=== PATIENT | male | born 1955 | race Caucasian/White ===

== ENCOUNTER 2016-12-13 15:09 | Observation (INO) ==
--- NOTE | 2016-12-13 15:22 | Emergency Department Note ---
Disposition Clinical Impression: Chest pain Qualifiers: Chest pain type: unspecified Qualified Code(s): R07.9 - Chest pain, unspecified Disposition: Admitted As Inpatient Condition: Good Time of Disposition: 17:39 Chest Pain HPI - General Chief Complaint: ED Chest Pain Stated Complaint: Chest Pain Time Seen by Provider: 12/13/16 15:15 Source: EMS Mode of arrival: EMS Limitations: no limitations Vital Signs Reviewed: Yes Nursing Notes Reviewed: Yes - History of Present Illness HPI Narrative: 61-year-old male presents to the ED complaining of chest pain that began approximately 45 minutes ago. 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 He states that all of a sudden he had left- sided chest pain as radiating up into his left jaw. He states it was a 4 out of 10 pressure-like pain on his chest. He states he has never had this pain before. At this time he went into the nurse's station to get evaluated they said he was very pale and diaphoretic. At this time they gave him 4 baby aspirin. Upon takingthat he immediately had the chest pain go away. He states that he does not feel like he was short of breath but he was breathing hard according to the nurse when he arrived. 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 He states that his grandfather did have a heart attack at age 50 but did have heart issues before and after that. He does have a history of colon cancer but is in remission for 10 years. He states he has been on no long car rides, and shortness of breath, pain in his legs, take hormones, recent surgeries. All DVT risk factors were negative. He is currently not having pain when he presented to the ED. He is having no shortness of breath, headache, blurry vision, fevers, abdominal pain, constipation/diarrhea, pain or tingling going down the arms or legs, numbness. Severity scale (1-10): 0 - Related Data Home Medications Medication Instructions Recorded Confirmed Citalopram [CeleXA] 20 mg PO DAILY 09/02/16 09/02/16 Cyanocobalamin (B-12) [Vitamin B12] 1,000 mcg IM QMONTH 09/02/16 09/02/16 Lisinopril [Zestril] 10 mg PO DAILY 09/02/16 09/02/16 Omeprazole [PriLOSEC] 20 mg PO DAILY 09/02/16 09/02/16 Tamsulosin [Flomax] 0.4 mg PO DAILY 09/02/16 09/02/16 Allergies Allergy/AdvReac Type Severity Reaction Status Date / Time No Known Allergies Allergy Verified 09/02/16 09:38 Review of Systems: 10 point review of systems unable associated history of present illness. All systems ED: reviewed and negative except as stated. Review of Systems: As Per HPI Constitutional: Denies: fever, chills Cardiovascular: Denies: chest pain, palpitations Respiratory: Denies: cough, dyspnea, wheezes Gastrointestinal: Denies: abdominal pain, nausea, vomiting Chest Pain PMH - Past Medical History Medical history: Reports: cancer, hypertension Surgical history: Reports: colectomy Psychiatric history: Reports: no psych history - Social History Smoking Status: Unknown if ever smoked Alcohol use: Reports: occasionally Drug use: Reports: none Physical Exam - General Limitations: no limitations General appearance: alert, in no apparent distress - Head Head exam: atraumatic, normocephalic, normal inspection - Eye Eye exam: Present: normal appearance, PERRL, EOMI - ENT ENT exam: normal exam, normal oropharynx, mucous membranes moist - Neck Neck exam: Present: normal inspection, full ROM, trachea midline - Chest Chest inspection: Present: normal inspection, symmetric chest wall rise - Respiratory Respiratory exam: Present: normal lung sounds bilaterally - Cardiovascular Cardiovascular exam: Present: regular rate, normal rhythm, normal heart sounds - Abdominal Exam Abdominal exam: Present: soft, Non-Tender. Absent: tenderness, distention, guarding, rebound, rigidity - Expanded Lower Extremity Exam Neurovascular/Tendon exam: Absent: pulse deficit, motor deficit, sensory deficit , tendon deficit - Back Exam Back exam: Present: normal inspection, full ROM. Absent: tenderness, CVA tenderness (R), CVA tenderness (L) - Neurological Exam Neurological exam: Present: alert, oriented X3 - Skin Skin exam: Present: warm, dry, intact, normal color Course Course Narrative: 61-year-old male presents the ED with chest pain. We will get a EKG, chest x- ray, troponin, CMP, CBC. He has no DVT risk factors he was not tachycardic or hypoxic so we will not get a d-dimer. Patient was given aspirin per to arrival and he is not having chest pains will forego giving aspirin or nitroglycerin at this time. Patient okay with this plan. Disposition is most likely admission for chest pain rule out as he has never had a chest pain workup. Vital Signs Temperature 98.1 F 12/13/16 15:10 Pulse Rate 74 12/13/16 15:10 Respiratory Rate 18 12/13/16 15:10 Blood Pressure 149/95 12/13/16 15:10 O2 Sat by Pulse Oximetry 96 12/13/16 15:10 Temperature 98.1 F 12/13/16 15:10 Pulse Rate 74 12/13/16 15:10 Respiratory Rate 18 12/13/16 17:24 Blood Pressure 153/95 12/13/16 17:24 O2 Sat by Pulse Oximetry 96 12/13/16 15:10 Oxygen Delivery Oxygen Delivery Room Air Chest Pain - MDM Narrative Medical decision making narrative: 61-year-old male presents to the ED for chest pain. He was at work when he said the chest pain started in his left chest and radiated up into his left cheek. He has never had this feeling before. He went to the nurse's station exam is diaphoretic and pale in color. Due to this symptoms we decided to do a chest pain workup. He was given 4 baby aspirin prior to arrival and states that the chest pain did go away. He denies having chest pain and tremors per we did not give him nitroglycerin. EKG and chest x-ray were normal. All his labs are normal including his troponin. Due to him having no cardiac workup in the past and his symptoms that he presented with refill of his best friend be admitted for chest pain workup and further cardiac evaluation including stress test and echocardiogram. Patient is okay with this plan. Spoke with the hospitalist who agreed to accept the patient. Patient is admitted in stable condition at this time. Chest X-Ray 12/13/16 15:15 IMPRESSION: Normal. D/ / To Smith MD / To Smith MD Interpreting Provider: To Smith MD - Medical Records Medical records reviewed: Yes I reviewed the patient's medical records. - Lab Data Lab results reviewed: Yes I reviewed the patient's lab results. Result diagrams: 12/13/16 15:26 12/13/16 15:26 Lab Results 12/13/16 12/13/16 12/13/16 Range/Units 15:26 15:26 15:26 WBC 6.6 (4.3-11.1) K/mcL RBC 4.98 (4.19-5.50) M/mcL Hgb 14.7 (12.9-16.9) g/dL Hct 43.1 (37.5-50.1) % MCV 86.5 (83.0-100.0) fL MCH 29.5 (28.0-33.3) pg MCHC 34.1 (31.6-35.5) g/dL RDW 12.2 (11.5-14.5) % Plt Count 262 (140-400) K/mcL MPV 9.5 (9.4-12.4) fL Immature Gran % 0.2 (0-4) % Seg Neutrophils % 62.6 % Lymphocytes % 22.8 % Monocytes % 11.8 % Eosinophils % 2.0 % Basophils % 0.6 % Neutrophils # 4.2 (1.6-8.9) K/mcL Lymphocytes # 1.5 (0.6-4.6) K/mcL Monocytes # 0.8 (0.0-1.3) K/mcL Eosinophils # 0.1 (0.0-0.6) K/mcL Basophils # 0.0 (0.0-0.2) K/mcL PT 10.8 (9.4-12.1) Seconds INR 1.0 APTT 27.6 (26.0-36.0) Seconds Sodium 140 (136-145) mEq/L Potassium 4.3 (3.5-4.5) mEq/L Chloride 106 (98-109) mEq/L Carbon Dioxide 27 (19-29) mEq/L BUN 12 (8-26) mg/dL Creatinine 0.87 (0.72-1.25) mg/dL Est GFR ( Amer) > 60 (> 60) Est GFR (Non-Af Amer) > 60 (> 60) BUN/Creatinine Ratio 14 (6-26) Glucose 81 (70-99) mg/dL Calculated Osmolality 289 (280-300) Calcium 9.1 (8.6-10.8) mg/dL Troponin I (0-0.03) ng/mL 12/13/16 Range/Units 15:26 WBC (4.3-11.1) K/mcL RBC (4.19-5.50) M/mcL Hgb (12.9-16.9) g/dL Hct (37.5-50.1) % MCV (83.0-100.0) fL MCH (28.0-33.3) pg MCHC (31.6-35.5) g/dL RDW (11.5-14.5) % Plt Count (140-400) K/mcL MPV (9.4-12.4) fL Immature Gran % (0-4) % Seg Neutrophils % % Lymphocytes % % Monocytes % % Eosinophils % % Basophils % % Neutrophils # (1.6-8.9) K/mcL Lymphocytes # (0.6-4.6) K/mcL Monocytes # (0.0-1.3) K/mcL Eosinophils # (0.0-0.6) K/mcL Basophils # (0.0-0.2) K/mcL PT (9.4-12.1) Seconds INR APTT (26.0-36.0) Seconds Sodium (136-145) mEq/L Potassium (3.5-4.5) mEq/L Chloride (98-109) mEq/L Carbon Dioxide (19-29) mEq/L BUN (8-26) mg/dL Creatinine (0.72-1.25) mg/dL Est GFR ( Amer) (> 60) Est GFR (Non-Af Amer) (> 60) BUN/Creatinine Ratio (6-26) Glucose (70-99) mg/dL Calculated Osmolality (280-300) Calcium (8.6-10.8) mg/dL Troponin I 0.00 (0-0.03) ng/mL - Radiology Data Radiology results reviewed: Yes I reviewed the patient's radiology results. - EKG Data EKG attestation: Yes I reviewed and interpreted this EKG. EKG results narrative: EKG done at 1516 reviewed by myself and the attending shows normal sinus rhythm at a rate is 67, [place] interval 148, QRS 84, QTC 400 with a normal axis. There is no acute ST changes, T-wave changes. No signs of any heart blocks. No signs of hypertrophy. No signs of WW/Brugada syndrome. There is no old EKG that was done 08/02/16 which also showed no acute changes but was sinus bradycardia. My overall impression is that this is a normal EKG with no acute changes. EKG shows normal: sinus rhythm, axis, intervals, QRS complexes, ST-T waves Rate: normal Rhythm: NSR [place]/QRS: normal When compared to previous EKG there are: no significant changes Interpretation: no acute changes, normal EKG, unchanged when compared to prior tracing (date) Heart Score - Score History: Moderately Suspicious EKG: Normal Age: 45-65 Risk Factors: 1-2 risk factors Troponin: Less than normal limit HEART Score Total: 3 Attestation Statement - Attestation Attestation: I, George Moreira, examined this patient and my medical decision-making was reviewed with the TRESTLE MAINTERNANCE LABORER/PA/Advanced Practice Nurse/Resident Physician. I agree with the documented findings, disposition and treatment plan as described except to the extent set forth below. 61-year-old male presents emergency department with acute onset chest pain. Patient states he was at work when he suddenly had acute onset of an ache in the left side of his chest that radiated to his jaw is associated with diaphoresis and lightheadedness. Patient states he became near syncopal but did not syncopized. Ever happened to him in the past. No changes in his medications. Patient denies significant EtOH use or history of IV drug use. Pain resolved after receiving aspirin by EMS. He denies fever, chills, nausea, vomiting, diarrhea, abdominal pain. Patient cannot recall the last time he had an evaluation of his heart. Initial troponin negative. EKG did not show evidence of STEMI. Patient will be admitted to the hospital for further care and evaluation of his acute onset chest pain.
[2016-12-13 15:34] LABS: Basophils % 0.6 %; Eosinophils # 0.1 K/mcL (0.0-0.6); Hematocrit 43.1 % (37.5-50.1); Hemoglobin 14.7 g/dL (12.9-16.9); Immature Granulocytes % 0.2 % (0-4); Lymphocytes # 1.5 K/mcL (0.6-4.6); Lymphocytes % 22.8 %; Mean Corpuscular HGB Conc 34.1 g/dL (31.6-35.5); Mean Corpuscular Hemoglobin 29.5 pg (28.0-33.3); Mean Corpuscular Volume 86.5 fL (83.0-100.0); Mean Platelet Volume 9.5 fL (9.4-12.4); Monocytes # 0.8 K/mcL (0.0-1.3); Monocytes % 11.8 %; Neutrophils # 4.2 K/mcL (1.6-8.9); Platelet Count 262 K/mcL (140-400); Red Blood Count 4.98 M/mcL (4.19-5.50); Red Cell Distribution Width 12.2 % (11.5-14.5); Segmented Neutrophils % 62.6 %
[2016-12-13 15:47] LABS: Prothrombin Time 10.8 Seconds (9.4-12.1)
[2016-12-13 15:50] LABS: Activated Partial Thrombo Time 27.6 Seconds (26.0-36.0)
[2016-12-13 15:51] LABS: BUN/Creatinine Ratio 14 (6-26); Blood Urea Nitrogen 12 mg/dL (8-26); Calcium 9.1 mg/dL (8.6-10.8); Carbon Dioxide 27 mEq/L (19-29); Chloride 106 mEq/L (98-109); Glucose 81 mg/dL (70-99); Osmolality,Calculated 289 (280-300); Potassium 4.3 mEq/L (3.5-4.5); Sodium 140 mEq/L (136-145); eGFR For African Americans > 60 (> 60); eGFR For Non-African Americans > 60 (> 60)
[2016-12-13] MEDS ORDERED: Acetaminophen 325 MG TABLET PO PRN (18:09)
[2016-12-13] MEDS ORDERED: Naloxone 0.4 MG/ML INJ IVP PRN (18:09)
[2016-12-13] MEDS ORDERED: *HR* Morphine 2 MG/ML SYRINGE IVP PRN (18:09)
[2016-12-13] MEDS ORDERED: Ondansetron 4 MG/2 ML VIAL IVP PRN (18:09)
[2016-12-13] MEDS ORDERED: *HR* HYDROcodone/Acet 5/325 mg TABLET PO PRN (18:09)
--- NOTE | 2016-12-13 18:24 | Internal Med History&Physical ---
<AshleyliliyapaulySaqib bronson - Last Filed: 12/13/16 19:09> Date of Encounter: 12/13/16 Time of Encounter: 17:00 Assessment and Plan (1) Chest pain Current visit: Yes Status: Acute Acute chest pain that began this afternoon with duration >1 hour. Pt. describes pain as pressure that radiates to left neck. Diaphoresis, SOOB and lightheadedness are associated sx. Denies any previous cardiac hx, previous echocardiogram, or previous stress test. EKG today shows sinus rhythm and normal ECG. Initial troponin 0.00. Will trend x2. Continuous cardiac telemetry. NPO at midnight for nuclear pharm stress test in the a.m. D-dimer ordered stat. O2 PRN. Nitroglycerin SL PRN. Will consider cardiology consult based on echo and stress test results. Pt. at high risk for cardiac event based on current sx , risk factor of HTN, and hx of grandfather [place] @ 50 years old. Observation. Qualifiers: Chest pain type: other chest pain Qualified Code(s): R07.89 - Other chest pain; R07.8 - Other chest pain (2) Lightheadedness Current visit: Yes Status: Acute Acute lightheadedness associated with chest pain sx. Transient. Falls/safety precautions. (3) HTN (hypertension) Current visit: Yes Status: Chronic Hx of chronic HTN. Monitor pt. and VS. Continue lisinopril. Hydralazine 10 mg Q6 PRN for systolic BP >160. Qualifiers: Hypertension type: essential hypertension Qualified Code(s): I10 - Essential (primary) hypertension (4) DVT prophylaxis Current visit: Yes Status: Acute Heparin 5,000 units SQ Q8 for DVT prophylaxis. Internal Medicine - H&P: HPI Chief complaint: Chest pain Admitted From: Emergency Dept Plans for Post Hospital Care: Home History of present illness: Mr. Culp is a 61 year old male with medical history of colon cancer diagnosis 11 years ago (resolved), hypertension, GERD, and enlarged prostate reports from the ED with chief complaint of chest pain that began this afternoon while he was at work. 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 Duration was greater than 1 hour. Patient reports he was lightheaded, short of breath, and diaphoretic. Also reports urinary urgency/frequency d/t enlarged prostate. He was given 324 mg of aspirin at work which he states helped the pain go away. Denies any previous history of cardiac issues and states he has never seen a radiologist, had an echocardiogram or stress test. Denies recent illness, fever, chills, nausea, vomiting, changes in vision, unusual bleeding, headache, numbness, tingling, abdominal pain, diarrhea, constipation, presyncope, or syncope. Past Med Surg Social Fam HX - Past Medical History Source: patient, old records reviewed Medical history: cancer (Colon cancer dx 11 years ago. Had 18" of colon removed. ), hypertension Psychiatric history: no psych history - Past Surgical History Surgical History: colectomy - Social History Smoking Status: Never smoker Smokeless Tobacco Status: No Alcohol use: occasionally Drug use: none Occupational status: employed Current living situation: Home Activity Level: Independent ambulation, Very active Recent Out of Country Travel Within the Last 8 Weeks: No Exposure or Possible Exposure to Illness During Travel: No - Family History Father Race: Family Member Ethnicity: Non- Living Status: Age at : 80 Cause of : Lung cancer w/mets to brain Hx Family Cancer: Yes (Lung/Brain) Mother Race: Family Member Ethnicity: Non- Living Status: Still Living Hx Family Cardiac Disorders: Yes ([place]) Brother Race: Family Member Ethnicity: Non- Living Status: Still Living Hx Family Endocrine Disorder: Yes (DM) Grandmother Race: Family Member Ethnicity: Non- Living Status: Cause of : CAD Hx Family Cardiac Disorders: Yes (CAD) Hx Family Endocrine Disorder: Yes (DM) Grandfather Race: Family Member Ethnicity: Non- Living Status: Cause of : [place] Hx Family Cardiac Disorders: Yes (CAD) Internal Medicine - H&P: Meds Citalopram [CeleXA] 20 mg PO DAILY 09/02/16 [History] Cyanocobalamin (B-12) [Vitamin B12] 1,000 mcg IM QMONTH 09/02/16 [History] Omeprazole [PriLOSEC] 20 mg PO DAILY 09/02/16 [History] RX: Lisinopril [Zestril] 10 mg PO DAILY 09/02/16 [History] Tamsulosin [Flomax] 0.4 mg PO DAILY 09/02/16 [History] 3 Allergy/AdvReac Type Severity Reaction Status Date / Time No Known Allergies Allergy Verified 09/02/16 09:38 All Systems PM: A 10-system review of systems was performed and is negative for pertinent findings except as documented above in the HPI. - Constitutional Constitutional: no chills, no fever(s), no night sweats - EENT Eyes: no change in vision, no discharge, no pain, no photophobia Ears: no ear discharge, no ear pain, no tinnitus Nose, mouth and throat: no dysphagia, no nasal discharge, no neck pain, no sore throat - Breasts Breasts: as per HPI - Cardiovascular Cardiovascular ROS IM: as per HPI, chest pain, diaphoresis, dyspnea, dyspnea on exertion, lightheadedness - Respiratory Respiratory: as per HPI, dyspnea, dyspnea on exertion - Gastrointestinal Gastrointestinal: no abdominal pain, no diarrhea, no hematemesis, no hematochezia, no melena, no nausea, no vomiting - Genitourinary Genitourinary ROS male: as per HPI, urinary frequency - Musculoskeletal Musculoskeletal ROS IM: no numbness, no tingling - Integumentary Integumentary IM: no rash, no unusual bruising - Neurological Neurological ROS: no confusion, no convulsions, no focal weakness, no numbness, no tingling, no tremor(s) - Psychiatric Psychiatric: as per HPI - Endocrine Endocrine IM: as per HPI - Hematologic/Lymphatic Hematologic/Lymphatic: no easy bruising - Allergic/Immunologic Allergic/Immunologic: as per HPI - Constitutional Vitals: Temp Pulse Resp BP Pulse Ox 98.1 F 74 18 153/95 96 12/13/16 15:10 12/13/16 15:10 12/13/16 17:24 12/13/16 17:24 12/13/16 15:10 General appearance: Present: cooperative, A&O X 3, pleasant, no acute distress, answers questions appropriately - Head Head exam: Present: atraumatic, normocephalic - Eye Eye exam: Present: PERRL, conjuntiva pink, sclera anicteric Pupils: Present: PERRL - ENT ENT exam: Present: normal exam, normal external ear exam, normal oropharynx - Neck Neck exam general surgery: Present: normal inspection, supple, trachea midline. Absent: lymphadenopathy - Respiratory Respiratory exam: Present: CTAB. Absent: accessory muscle use, rales, rhonchi, wheezes - Cardiovascular Cardiovascular exam: Present: RRR, +S1, +S2. Absent: diastolic murmur, gallop, rubs, systolic murmur - GI/Abdominal GI/Abdominal exam: Present: normal bowel sounds, soft, no peritoneal signs. Absent: distended, tenderness - Rectal Rectal exam: Present: deferred - Additional comments: exam deferred. - Extremities Exam Extremities exam: Present: warm, radial pulses palpable and symmetrical. Absent : calf tenderness, cyanotic, pedal edema - Back Exam Back exam: Present: normal inspection - Neurological Exam Neurological exam: Present: CN II-XII intact, oriented X3, no focal deficits. Absent: pronater drift, facial droop, speech deficit - Psychiatric Psychiatric exam: Present: normal affect, normal mood - Skin Skin exam: Present: dry, intact Internal Med - H&P Results - Labs CBC & Chem 7: 12/13/16 15:26 12/13/16 15:26 - EKG Data EKG shows normal: sinus rhythm Rate: normal - EKG Data Prior EKG available for review: yes When compared to previous EKG: there is no significant change Interpretation IM: normal EKG EKG comments: 12/13/16 18:34 EKG dated 08/02/16 shows sinus bradycardia. EKG dated 12/13/16 shows sinus rhythm and normal ECG. - Diagnostic Studies Chest x-ray Additional comments: Impressions Chest X-Ray 12/13/16 15:15 IMPRESSION: Normal. D/ / To Smith MD / To Smith MD Interpreting Provider: To Smith MD <Seb Guzman - Last Filed: 12/13/16 22:28> Date of Encounter: 12/13/16 Internal Medicine - H&P: HPI History of present illness: Mr. Culp is a 61 year old male All Systems PM: A 10-system review of systems was performed and is negative for pertinent findings except as documented above in the HPI. - Constitutional Vitals: Temp Pulse Resp BP Pulse Ox 97.6 F 55 17 173/89 94 12/13/16 19:06 12/13/16 19:06 12/13/16 19:06 12/13/16 19:06 12/13/16 19:06 Internal Med - H&P Results - Labs CBC & Chem 7: 12/13/16 15:26 12/13/16 15:26 Labs: Cardiac Enzymes 12/13/16 Range/Units 20:47 Troponin I 0.00 (0-0.03) ng/mL - Attending Attestation I examined this patient and my medical decision-making was reviewed with the CIRCUIT TESTER. I agree with the documented findings, disposition and treatment plan as described except to the extent set forth below. Patient is a 61-year-old male with past medical history of colon cancer, hypertension and GERD. He presents to ED with complaints of chest pain. Pain was radiating to his jaw. He was given 325 mg aspirin at work. This did alleviate the pain. Patient denied any other complaints. Initial workup including EKG and troponin are negative. Chest x-ray does not show any acute process. Patient's d-dimer is elevated. CT angiogram chest is pending. Patient will be on aspirin and statin. Echocardiogram and stress test are pending. He has been explained about his condition and plan of care in detail. He understood and agreed. Heart rate 55, blood pressure 173/89, O2 sat 94% on room air. Heart this was positive. Lungs positive air entry is no wheeze or crackles. Abdomen soft nontender. Extremities pulses strong and regular.
[2016-12-13] MEDS ORDERED: Nitroglycerin 0.4 MG TAB.SUBL SL PRN (18:50)
[2016-12-13] MEDS: Pantoprazole 40 MG VIAL IVP SCH (20:50)
[2016-12-13] MEDS: *HR* Heparin 5,000 UNIT/ML VIAL SQ SCH (20:50)
[2016-12-14 04:11] LABS: Basophils % 0.6 %; Eosinophils # 0.2 K/mcL (0.0-0.6); Eosinophils % 3.2 %; Hematocrit 42.2 % (37.5-50.1); Hemoglobin 14.5 g/dL (12.9-16.9); Immature Granulocytes % 0.2 % (0-4); Lymphocytes # 1.9 K/mcL (0.6-4.6); Lymphocytes % 34.6 %; Mean Corpuscular HGB Conc 34.4 g/dL (31.6-35.5); Mean Corpuscular Hemoglobin 29.8 pg (28.0-33.3); Mean Corpuscular Volume 86.8 fL (83.0-100.0); Mean Platelet Volume 9.9 fL (9.4-12.4); Monocytes # 0.6 K/mcL (0.0-1.3); Monocytes % 10.2 %; Neutrophils # 2.8 K/mcL (1.6-8.9); Platelet Count 249 K/mcL (140-400); Red Blood Count 4.86 M/mcL (4.19-5.50); Red Cell Distribution Width 12.4 % (11.5-14.5); Segmented Neutrophils % 51.2 %
[2016-12-14 04:21] LABS: Hemoglobin A1C 4.8 %
[2016-12-14 04:28] LABS: Alanine Aminotransferase 21 Units/L (0-55); Albumin 3.4 g/dL (3.5-5.0); Albumin/Globulin Ratio 1.1 (1.1-2.2); Alkaline Phosphatase 49 Units/L (38-126); Aspartate Amino Transferase 22 Units/L (5-34); BUN/Creatinine Ratio 11 (6-26); Bilirubin,Total 0.5 mg/dL (0.2-1.2); Blood Urea Nitrogen 11 mg/dL (8-26); Calcium 9.1 mg/dL (8.6-10.8); Carbon Dioxide 28 mEq/L (19-29); Chloride 104 mEq/L (98-109); Chol/HDL Ratio 5.3 (0-4.9); Cholesterol 223 mg/dL (< 200); Glucose 95 mg/dL (70-99); HDL Cholesterol 42 mg/dL (40-59); LDL Cholesterol,Calculated 152 mg/dL (0-99); Magnesium 1.9 mg/dL (1.6-2.6); Osmolality,Calculated 289 (280-300); Sodium 140 mEq/L (136-145); Total Protein 6.4 g/dL (6.0-8.3); Triglycerides 144 mg/dL (< 150); eGFR For African Americans > 60 (> 60); eGFR For Non-African Americans > 60 (> 60)
[2016-12-14] MEDS: *HR* Heparin 5,000 UNIT/ML VIAL SQ SCH (05:51)
[2016-12-14] MEDS ORDERED: Regadenoson 0.4 MG/5 ML SYRINGE IVP ONE (06:15)
[2016-12-14] MEDS ORDERED: Aspirin Enteric Coated 81 MG Tablet PO SCH (09:00)
[2016-12-14 10:28] VITALS: BP 165/85
[2016-12-14] MEDS: Pantoprazole 40 MG VIAL IVP SCH (10:46)
--- NOTE | 2016-12-14 13:40 | Discharge Summary ---
Date of Encounter: 12/14/16 Time of Encounter: 08:05 - Discharge Diagnosis (1) Chest pain Priority: Primary Status: Acute Comments: Atypical chest pain - ACS ruled out Continue aspirin and statin at home Troponin - negative EKG - sinus rhythm with no acute ST-T changes D-dimer - 845 CTA chest - negative for PE, no acute pulmonary abnormality Stress test - negative for ischemia, gated EF 68% Echocardiogram - LVEF 55-60%, normal LV function, normal RV function Advised to return if symptoms worsen, follow up PCP Qualifiers: Chest pain type: other chest pain Qualified Code(s): R07.89 - Other chest pain; R07.8 - Other chest pain (2) HTN (hypertension) Priority: Secondary Status: Chronic Comments: Essential hypertension, controlled, monitor Continue home dose of Lisinopril Qualifiers: Hypertension type: essential hypertension Qualified Code(s): I10 - Essential (primary) hypertension - Discharge Medications Prescriptions: Aspirin Enteric Coated [Aspirin EC] 81 mg PO DAILY #30 tablet. Simvastatin [Zocor] 20 mg PO HS #30 tablet Home Medications: Citalopram [CeleXA] 20 mg PO DAILY 09/02/16 [History] Cyanocobalamin (B-12) [Vitamin B12] 1,000 mcg IM QMONTH 09/02/16 [History] Lisinopril [Zestril] 10 mg PO DAILY 09/02/16 [History] Omeprazole [PriLOSEC] 20 mg PO DAILY 09/02/16 [History] Tamsulosin [Flomax] 0.4 mg PO DAILY 09/02/16 [History] Aspirin Enteric Coated [Aspirin EC] 81 mg PO DAILY #30 tablet. 12/14/16 [Rx] Simvastatin [Zocor] 20 mg PO HS #30 tablet 12/14/16 [Rx] Allergies/Adverse Reactions: 3 Allergy/AdvReac Type Severity Reaction Status Date / Time No Known Allergies Allergy Verified 09/02/16 09:38 Procedures/tests Complete & Pending: Procedures Performed prior 72 hours Category Date Time Status CTA chest [CT angio chest] [CT] Stat Cat Scan 12/13/16 22:25 Completed NM drake perf SPECT multi [NM] Routine Exams 12/13/16 18:14 Taken EV echocardiogram Routine Y 12/13/16 18:12 Completed SP pharm nuclear stress Routine Y 12/14/16 10:00 Completed Date of admission: 12/13/16 17:09 Primary care physician: Viet Rasmussen Anticipated date of discharge: 12/14/16 - Patient Status Disposition: Home, Self-Care Condition: Good Functional capacity at discharge: independent ambulation Overall status at discharge: patient is back to baseline - Discharge Instructions Instructions: Chest Pain (DC), Chronic Hypertension (DC) Follow Up With: Viet Rasmussen, [Primary Care Provider] - - Diet and Activity Activity: increase activity as tolerated, resume usual activities as tolerated Diet: low fat, low cholesterol Hospital course: Mr. Culp is a 61 year old male with past medical history of colon cancer and hypertension. Patient presents to the ED with complaints of chest pain. 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 Pain was greater than 1 hour in duration. He also complained of lightheadedness and shortness of breath and diaphoresis. He was initially given 325 mg aspirin at work which helped with the pain. Patient was admitted with chest pain rule out ACS. EKG shows sinus rhythm with no acute ST- T changes. Troponin is negative 3. Echocardiogram shows LVEF 55-60% with normal LV function and normal RV function. Stress test was also done and is negative for any ischemia. Patient did have an elevated d-dimer and a CT angios of the chest is negative for PE and is negative for any acute pulmonary abnormality. Patient is being discharged with aspirin and statin. He has been advised to continue all his other home medications. Patient did not have any other acute events or consultations during his stay in the hospital. He has been explained about his condition and plan of care in detail. Patient understood and agreed. No unanswered questions. Patient is being discharged in a stable condition. - Time Spent with Patient Total time spent providing and/or coordinating discharge services: Less than 30 minutes - Constitutional Vitals: Temp Pulse Resp BP Pulse Ox 97.6 F 61 19 165/85 97 12/14/16 10:27 12/14/16 10:27 12/14/16 10:27 12/14/16 10:27 12/14/16 10:27 General appearance: Present: cooperative, A&O X 3, pleasant, no acute distress, answers questions appropriately - Head Head exam: Present: atraumatic - Eye Eye exam: Present: EOMI - ENT ENT exam: Present: mucous membranes moist - Respiratory Respiratory exam: Present: CTAB. Absent: rales, rhonchi, wheezes, tachypnea - Cardiovascular Cardiovascular exam: Present: RRR, +S1, +S2 - GI/Abdominal GI/Abdominal exam: Present: soft. Absent: distended, firm, guarding, tenderness - Extremities Exam Extremities exam: Present: radial pulses palpable and symmetrical. Absent: calf tenderness, cyanotic, pedal edema - Neurological Exam Neurological exam: Present: alert, oriented X3, no focal deficits. Absent: facial droop, speech deficit
--- NOTE | 2016-12-16 17:15 | Electrocardiograph Report ---
[address] [address] Test Date: 2016-12-13 Pat Name: Sahil Culp Department: 104 Room: 3B Gender: M Oncology Physician: LARON : [id number] Requested By: Mehdi Nguyễn Order Number: [id number] Reading MD: Magdalene Reyes Measurements Intervals [place] Rate: 67 P: 58 AK: 148 QRS: 7 QRSD: 84 T: 42 QT: 384 QTc: 400 Interpretive Statements SINUS RHYTHM Electronically Signed On 12-16-2016 17:13:11 EDT by Magdalene Reyes
[2016-12-27] MEDS ORDERED: Cyanocobalamin (B-12) 1,000 MCG/ML VIAL IM SCH (09:00)
== END 2016-12-14 15:03 | disposition home or self-care (01) ==
LOC: 3BNU 15:09 → EMEROO 15:09 → 3BNU 18:10
PROVIDERS: ADMIT Nurse Practitioner Acute Care; ATTEND Registered Nurse

== ENCOUNTER 2019-05-26 10:19 | Inpatient (IN) ==
[2019-05-26] MEDS ORDERED: Isovue-370 500 ML BOTTLE IVP ONE (10:24)
[2019-05-26 10:33] LABS: Hematocrit 47.7 % (37.5-50.1); Hemoglobin 16.3 g/dL (12.9-16.9); Mean Corpuscular HGB Conc 34.2 g/dL (31.6-35.5); Mean Corpuscular Hemoglobin 29.4 pg (28.0-33.3); Mean Corpuscular Volume 86.1 fL (83.0-100.0); Mean Platelet Volume 9.7 fL (9.4-12.4); Platelet Count 254 K/mcL (140-400); Red Blood Count 5.54 M/mcL (4.19-5.50); Red Cell Distribution Width 12.4 % (11.5-14.5); White Blood Count 6.6 K/mcL (4.3-11.1)
[2019-05-26 10:40] LABS: Prothrombin Time 11.7 Seconds (9.4-12.1)
[2019-05-26 10:43] LABS: Activated Partial Thrombo Time 30.8 Seconds (26.0-36.0)
[2019-05-26 10:59] LABS: BUN/Creatinine Ratio 15 (6-26); Blood Urea Nitrogen 13 mg/dL (8-23); Calcium 9.7 mg/dL (8.6-10.3); Carbon Dioxide 25 mEq/L (23-29); Chloride 105 mEq/L (98-107); Glucose 98 mg/dL (70-105); Osmolality,Calculated 292 (280-300); Potassium 3.6 mEq/L (3.5-5.1); Sodium 141 mEq/L (136-145); Troponin I < 0.03 ng/mL (< 0.04); eGFR For African Americans > 60 (> 60); eGFR For Non-African Americans > 60 (> 60)
[2019-05-26] MEDS ORDERED: Aspirin 325 MG TABLET PO ONE (11:28)
[2019-05-26] MEDS ORDERED: Naloxone 0.4 MG/ML INJ IVP PRN (11:58)
[2019-05-26 12:24] LABS: Bilirubin,Urine Negative (Negative); Blood,Urine Negative (Negative); Clarity,Urine Clear (Clear); Color,Urine Yellow (Yellow); Glucose,Urine (UA) Normal (Normal); Ketones,Urine Negative (Negative); Leukocyte Esterase,Urine Negative (Negative); Nitrite,Urine Negative (Negative); Protein,Urine Negative (Neg-Trace); Specific Gravity,Urine > 1.030 (1.010-1.025); Urobilinogen,Urine Normal (Normal)
[2019-05-27 01:38] LABS: Basophils % 0.3 %; Eosinophils % 0.4 %; Hematocrit 45.1 % (37.5-50.1); Hemoglobin 15.2 g/dL (12.9-16.9); Immature Granulocytes % 0.3 % (0-4); Lymphocytes # 1.4 K/mcL (0.6-4.6); Lymphocytes % 15.1 %; Mean Corpuscular HGB Conc 33.7 g/dL (31.6-35.5); Mean Corpuscular Hemoglobin 29.5 pg (28.0-33.3); Mean Corpuscular Volume 87.6 fL (83.0-100.0); Mean Platelet Volume 10.3 fL (9.4-12.4); Monocytes # 0.8 K/mcL (0.0-1.3); Neutrophils # 6.7 K/mcL (1.6-8.9); Platelet Count 242 K/mcL (140-400); Red Blood Count 5.15 M/mcL (4.19-5.50); Red Cell Distribution Width 12.5 % (11.5-14.5); Segmented Neutrophils % 74.9 %
[2019-05-27 01:58] LABS: BUN/Creatinine Ratio 12 (6-26); Blood Urea Nitrogen 10 mg/dL (8-23); Calcium 9.5 mg/dL (8.6-10.3); Carbon Dioxide 26 mEq/L (23-29); Chloride 106 mEq/L (98-107); Glucose 96 mg/dL (70-105); Osmolality,Calculated 295 (280-300); Phosphorous 3.4 mg/dL (2.7-4.5); Potassium 3.6 mEq/L (3.5-5.1); Sodium 143 mEq/L (136-145); eGFR For African Americans > 60 (> 60); eGFR For Non-African Americans > 60 (> 60)
[2019-05-27] MEDS: *HR* Heparin 5,000 UNIT/ML VIAL SQ SCH ×2 (05:21→19:00)
[2019-05-27] MEDS: Aspirin 81 MG TAB.CHEW PO SCH (08:57)
[2019-05-27] MEDS: lisinopriL 10 MG TABLET PO SCH (08:57)
[2019-05-28] MEDS: *HR* Heparin 5,000 UNIT/ML VIAL SQ SCH (05:21)
[2019-05-28] MEDS: Aspirin 81 MG TAB.CHEW PO SCH (07:17)
[2019-05-28] MEDS: lisinopriL 10 MG TABLET PO SCH (07:18)
[2019-05-28] MEDS ORDERED: 0.9 % Sodium Chloride 500 ML IVC ONE (08:39)
[2019-05-28] MEDS ORDERED: Lidocaine Viscous Oral Soln 15 ML SOLUTION MM PRN (08:39)
[2019-05-28] MEDS: *HR* FentaNYL (PF) 100 MCG/2 ML VIAL IVP PRN ×2 (09:15→09:20)
[2019-05-28] MEDS: *HR* Midazolam HCl 5 MG/5 ML VIAL IVP PRN ×2 (09:15→09:20)
[2019-05-28 10:32] VITALS: BP 133/79
== END 2019-05-28 13:32 | disposition home or self-care (01) ==
LOC: EMEROOARM 10:19 → 2ANU 10:19 → SUATTDRO 11:58 → 2ANU 12:25
PROVIDERS: ADMIT Student in an Organized Health Care Education/Training Program; ATTEND Internal Medicine